=== PATIENT | female | born 1975 | race Caucasian/White ===

== ENCOUNTER 2020-11-15 05:50 | Day surgery (SDC) | payer BC ==
[2020-11-14 15:31] LABS: BASOPHILS % (AUTO) 0 % (0-1); EOSINOPHILS % (AUTO) 1 % (1-7); LYMPHOCYTES % (AUTO) 31 % (22-44); MEAN CORPUSCULAR HEMOGLOBIN 32.5 pg (27.0-34.8); MEAN CORPUSCULAR HGB CONC 34.1 g/dL (32.4-35.8); MEAN PLATELET VOLUME 6.6 fL (7.4-10.4); MONOCYTES % (AUTO) 5 % (2-9); NEUTROPHILS % (AUTO) 63 % (42-75); PLATELET COUNT 385 x10^3/uL (130-400); RED BLOOD COUNT 4.18 x10^6/uL (3.82-5.3); RED CELL DISTRIBUTION WIDTH 12.6 % (9.6-15.2)
[2020-11-14 15:37] LABS: ANION GAP 6 mmol/L (5-15); CALCIUM 9.2 mg/dL (8.5-10.1); CHLORIDE 110 mmol/L (98-107); MD NO
[2020-11-14 15:42] LABS: CREATININE 0.83 mg/dL (0.55-1.02)
[~2020-11-15] VITALS: Ht 167.6 cm; Wt 83.1 kg
[~2020-11-15 05:50] MED LIST: ACYC-114 PO; CHOL10003 PO; CYAN50003 PO; FLAX10004 PO; L.AC1CAP6 PO; LORA-439 PO; LYSI500T8 PO; NORG1TAB7 PO; POTA99TA2 PO; VITAMIN C PO; ZINC PO
[2020-11-15 06:14] VITALS: BP 110/75
[2020-11-15] MEDS ORDERED: CHLORHEXIDINE 15 ML UDC ONE (06:16)
[2020-11-15] MEDS ORDERED: CHLORHEXIDINE 15 ML UDC MM ONE (06:30)
[2020-11-15] MEDS ORDERED: LACTATED RINGERS 1,000 ML IV SCH (06:30)
[2020-11-15] MEDS ORDERED: BUPIVACAINE/PF 0.25% ONE (07:00)
[2020-11-15] MEDS ORDERED: EPINEPHRINE 1 MG/ML, 1ML ONE (07:00)
[2020-11-15] MEDS ORDERED: MIDAZOLAM 1 MG/ML, 2ML ONE (07:05)
[2020-11-15] MEDS ORDERED: FENTANYL PF 250 MCG/5ML ONE (07:06)
[2020-11-15] MEDS ORDERED: KETOROLAC 30 MG/1 ML ONE (07:06)
[2020-11-15] MEDS ORDERED: DEXAMETHASONE 4 MG/ML, 1ML ONE (07:23)
[2020-11-15] MEDS ORDERED: PROPOFOL 10 MG/ML, 20ML ONE (07:23)
[2020-11-15] MEDS ORDERED: ONDANSETRON 2MG/ML, 2ML ONE (07:23)
[2020-11-15] MEDS ORDERED: CEFAZOLIN 1,000 MG ONE (07:23)
[2020-11-15] MEDS ORDERED: OXYcodone 5 MG/5 ML ORAL.SOL UDC PO PRN (07:30)
[2020-11-15] MEDS ORDERED: HALOPERIDOL 5 MG/ML IV PRN (07:30)
[2020-11-15] MEDS ORDERED: LABETALOL 5MG/ML, 20ML IV PRN (07:30)
[2020-11-15] MEDS ORDERED: PROMETHAZINE 25 MG/ML, 1ML IVPush PRN (07:30)
[2020-11-15] MEDS ORDERED: ACETAMINOPHEN 325 MG TABLET PO PRN (07:30)
[2020-11-15] MEDS ORDERED: hydrALAzine 20 MG/ML, 1ML IV PRN (07:30)
[2020-11-15] MEDS ORDERED: morphine SULFATE 10 MG/ML, 1ML IVPush PRN (07:30)
[2020-11-15] MEDS ORDERED: HYDROmorphone 1 MG/ML, 1ML INJ IVPush PRN (07:30)
[2020-11-15] MEDS ORDERED: MEPERIDINE/PF 25MG/0.5ML IVPush PRN (07:30)
[2020-11-15] MEDS ORDERED: FENTANYL PF 100 MCG/2ML ONE (08:36)
[2020-11-15] MEDS: FENTANYL PF 100 MCG/2ML IV PRN ×2 (08:40→08:51)
[2020-11-15] MEDS ORDERED: OXYcodone 5 MG/5 ML ORAL.SOL UDC ONE (08:50)
== END 2020-11-15 10:20 | disposition home or self-care (01) ==
LOC: OUT 05:50
PROVIDERS: ATTEND Obstetrics & Gynecology
DX: D06.0 Carcinoma in situ of endocervix (principal); F32.9 Major depressive disorder, single episode, unspecified; Z20.822 Contact with and (suspected) exposure to COVID-19; Z79.899 Other long term (current) drug therapy; Z98.51 Tubal ligation status; Z90.49 Acquired absence of other specified parts of digestive tract; Z98.890 Other specified postprocedural states
CPT/HCPCS: 36415; 57520; 80048; 84702; 85025; 86850; 86900; 86923; 87635; 88305; 88307; J0171; J0690; J1100; J1885; J2250; J2405; J2704; J3010; J7120

== ENCOUNTER → 2021-01-18 | Outpatient (CLI) | payer BC ==
[2021-01-18 15:47] LABS: BASOPHILS % (AUTO) 1 % (0-1); EOSINOPHILS % (AUTO) 2 % (1-7); LYMPHOCYTES % (AUTO) 34 % (22-44); MEAN CORPUSCULAR HEMOGLOBIN 32.1 pg (27.0-34.8); MEAN CORPUSCULAR HGB CONC 34.2 g/dL (32.4-35.8); MEAN PLATELET VOLUME 6.8 fL (7.4-10.4); MONOCYTES % (AUTO) 5 % (2-9); NEUTROPHILS % (AUTO) 59 % (42-75); PLATELET COUNT 420 x10^3/uL (130-400); RED BLOOD COUNT 4.44 x10^6/uL (3.82-5.3)
[2021-01-18 15:50] LABS: MD NO
[2021-01-18 15:54] LABS: ANION GAP 6 mmol/L (5-15); CALCIUM 9.3 mg/dL (8.5-10.1); CHLORIDE 110 mmol/L (98-107); CREATININE 0.69 mg/dL (0.55-1.02)
== END | disposition home or self-care (01) ==
LOC: STAR 14:54
PROVIDERS: ATTEND Obstetrics & Gynecology
DX: Z01.812 Encounter for preprocedural laboratory examination (principal); N92.0 Excessive and frequent menstruation with regular cycle; Z20.822 Contact with and (suspected) exposure to COVID-19
CPT/HCPCS: 36415; 80048; 84702; 85025; U0003

== ENCOUNTER 2021-01-24 05:48 | Day surgery (SDC) | payer BC ==
[~2021-01-24] VITALS: Ht 167.6 cm; Wt 84.2 kg
[~2021-01-24 05:48] MED LIST changes: -ACYC-114 PO; +ACYC-40 PO
[2021-01-24 06:46] VITALS: BP 112/68
[2021-01-24] MEDS ORDERED: BUPIVACAINE/PF 0.25% ONE ×2 (06:53→08:09)
[2021-01-24] MEDS ORDERED: EPINEPHRINE 1 MG/ML, 1ML ONE (06:54)
[2021-01-24] MEDS ORDERED: CHLORHEXIDINE 15 ML UDC PO ONE (07:00)
[2021-01-24] MEDS ORDERED: LACTATED RINGERS 1,000 ML IV SCH (07:00)
[2021-01-24] MEDS ORDERED: HYDROmorphone 1 MG/ML, 1ML INJ ONE (07:01)
[2021-01-24] MEDS ORDERED: MIDAZOLAM 1 MG/ML, 2ML ONE (07:01)
[2021-01-24] MEDS ORDERED: FLUORESCEIN SODIUM 500 MG/5 ML ONE (07:02)
[2021-01-24] MEDS ORDERED: FENTANYL PF 100 MCG/2ML ONE ×3 (07:02→10:26)
[2021-01-24 07:04] LABS: HCG UR SG 1.021 (1.003-1.030)
[2021-01-24] MEDS ORDERED: PHENYLEPHRINE 10 MG/ML ONE (07:40)
[2021-01-24] MEDS ORDERED: ONDANSETRON 2MG/ML, 2ML ONE (07:40)
[2021-01-24] MEDS ORDERED: DEXAMETHASONE 4 MG/ML, 5ML ONE (07:40)
[2021-01-24] MEDS ORDERED: GLYCOPYRROLATE 0.2MG/1ML, 5ML ONE (07:40)
[2021-01-24] MEDS ORDERED: NEOSTIGMINE 1 MG/ML, 10ML ONE (07:40)
[2021-01-24] MEDS ORDERED: ROCURONIUM 10 MG/ML,10ML ONE (07:40)
[2021-01-24] MEDS ORDERED: EPHEDRINE 50 MG/ML, 1ML ONE (07:40)
[2021-01-24] MEDS ORDERED: CEFAZOLIN 1,000 MG ONE (07:40)
[2021-01-24] MEDS ORDERED: PROPOFOL 10 MG/ML, 20ML ONE (07:40)
[2021-01-24] MEDS ORDERED: HYDROmorphone 1 MG/ML, 1ML INJ IVPush PRN (08:30)
[2021-01-24] MEDS ORDERED: OXYcodone 5 MG/5 ML ORAL.SOL UDC PO PRN (08:30)
[2021-01-24] MEDS ORDERED: MEPERIDINE/PF 25MG/0.5ML IVPush PRN (08:30)
[2021-01-24] MEDS ORDERED: EPHEDRINE 50 MG/ML, 1ML IVPush PRN (08:30)
[2021-01-24] MEDS ORDERED: DIAZEPAM 5 MG/ML, 2ML IVPush PRN (08:30)
[2021-01-24] MEDS ORDERED: KETOROLAC 30 MG/1 ML IV PRN (08:30)
[2021-01-24] MEDS ORDERED: METOCLOPRAMIDE 5 MG/ML, 2ML IVPush PRN (08:30)
[2021-01-24] MEDS ORDERED: PROMETHAZINE 25 MG/ML, 1ML IVPush PRN (08:30)
[2021-01-24] MEDS ORDERED: hydrALAzine 20 MG/ML, 1ML IV PRN (08:30)
[2021-01-24] MEDS ORDERED: DIPHENHYDRAMINE 50 MG/ML, 1ML IVPush PRN (08:30)
[2021-01-24] MEDS ORDERED: ALBUTEROL/IPRATROPIUM 2.5MG/0.5MG, 3 ML NPPB PRN (08:30)
[2021-01-24] MEDS ORDERED: METOPROLOL 1 MG/ML, 5ML IV PRN (08:30)
[2021-01-24] MEDS ORDERED: LABETALOL 5MG/ML, 20ML IV PRN (08:30)
[2021-01-24] MEDS ORDERED: ONDANSETRON 2MG/ML, 2ML IVPush PRN (08:30)
[2021-01-24] MEDS ORDERED: ACETAMINOPHEN 325 MG TABLET PO PRN (08:30)
[2021-01-24] MEDS ORDERED: HALOPERIDOL 5 MG/ML IV PRN (08:30)
[2021-01-24] MEDS ORDERED: KETOROLAC 30 MG/1 ML ONE (10:02)
[2021-01-24] MEDS: FENTANYL PF 100 MCG/2ML IV PRN ×4 (10:04→10:38)
[2021-01-24] MEDS ORDERED: ACETAMINOPHEN 650 MG/20.3 ML UDC ONE (10:22)
[2021-01-24] MEDS ORDERED: OXYcodone 5 MG/5 ML ORAL.SOL UDC ONE (10:22)
== END 2021-01-24 13:50 | disposition home or self-care (01) ==
LOC: OUT 05:48
PROVIDERS: ATTEND Obstetrics & Gynecology
DX: N92.0 Excessive and frequent menstruation with regular cycle (principal); D25.9 Leiomyoma of uterus, unspecified; N83.8 Other noninflammatory disorders of ovary, fallopian tube and broad ligament; F32.9 Major depressive disorder, single episode, unspecified; E66.9 Obesity, unspecified; Z79.899 Other long term (current) drug therapy; Z90.49 Acquired absence of other specified parts of digestive tract; Z98.51 Tubal ligation status; Z98.890 Other specified postprocedural states; Z87.410 Personal history of cervical dysplasia; Z68.30 Body mass index [BMI] 30.0-30.9, adult; Z72.89 Other problems related to lifestyle
CPT/HCPCS: 36415; 58552; 81025; 86850; 86900; 86923; 88307; J0171; J0690; J1100; J1170; J1885; J2250; J2370; J2405; J2704; J2710; J3010; J7120

== ENCOUNTER 2021-03-22 11:44 | Outpatient (CLI) | payer BC | END 2021-03-22 23:59 | disposition home or self-care (01) | LOC: CFH 11:44 | PROVIDERS: ATTEND Obstetrics & Gynecology | DX: Z12.31 Encounter for screening mammogram for malignant neoplasm of breast (principal) | CPT/HCPCS: 77067 ==